=== PATIENT | female | born 1995 | race Caucasian/White ===

== ENCOUNTER 2022-07-21 12:51 | Outpatient (REF) | payer MEDICAID, SELFPAY ==
[2022-07-21 19:11] LABS: ALT 47 U/L (14-59); AST 23 U/L (15-37); Alkaline Phosphatase 62 U/L (46-116); Anion Gap 8.9 mmol/L (3-11); BUN 14 mg/dL (7-18); Bilirubin, Total 0.3 mg/dL (0.2-1.0); CO2 22.1 mmol/L (21.0-32.0); CREATININE 0.8 mg/dL (0.55-1.02); Calculated LDL 116 mg/dL (<100); Chloride 108 mmol/L (98-107); Cholesterol 187 mg/dL (<200); Glucose 116 mg/dL (74-106); HDL Cholesterol 52 mg/dL (40-60); Hemoglobin A1C 5.5 % (<5.7); Potassium 4.5 mmol/L (3.5-5.1); Sodium 139 mmol/L (136-145); Total Protein 8.1 g/dL (6.4-8.2); Triglyceride 97 mg/dL (<150)
== END 2022-07-21 12:52 | disposition home or self-care (01) ==
LOC: NCHCN 12:51
PROVIDERS: PCP Physician Assistant Medical; Visit Provider Nurse Practitioner Family
DX: E78.5 Hyperlipidemia, unspecified (principal); E66.8 Other obesity; R73.09 Other abnormal glucose
CPT/HCPCS: 80053; 80061; 83036